=== PATIENT | male | born 1950 | race Two or more races ===

== ENCOUNTER → 2023-01-26 | Emergency (ER) | payer OTHER ==
[~2023-01-26] VITALS: Ht 177.8 cm; Wt 93.0 kg
[~2023-01-26] MED LIST: LOSARTAN POTASS50 MG PO; TENORMIN25 MG PO
== END | disposition home or self-care (01) ==
LOC: ER 12:45
DX: S61.422A Laceration with foreign body of left hand, initial encounter (principal); W45.8XXA Other foreign body or object entering through skin, initial encounter; Y93.89 Activity, other specified; Y92.89 Other specified places as the place of occurrence of the external cause; Y99.8 Other external cause status; I10 Essential (primary) hypertension; Z88.6 Allergy status to analgesic agent